=== PATIENT | female | born 1995 | race Caucasian/White ===

== ENCOUNTER 2017-08-29 21:26 | Emergency (ER) | payer OTHER ==
[2017-08-29] MEDS ORDERED: traZODone 50 MG TAB PO ONE (22:38)
--- NOTE | 2017-08-29 22:40 | EDPHY ---
H & P Stated Complaint: c/o migraine streeter ongoing daily, pt says today much worse than usu Time Seen by Provider: 08/29/17 22:22 HPI/ROS: HPI The patient presents with headache which began at approximately 1:00 p.m. today , it started slowly and got progressively worse. It is a throbbing sensation which is retro-orbital and severe. She took Excedrin. It did not improve and became progressively worse until 7:00 p.m. when it became very severe. As she took sumatriptan which is now helped her symptoms significantly and she is feeling much better. She reports nausea without any vomiting. She has photophobia. She does have mild rhinorrhea. She is currently being evaluated for migraine headache. She has had them for the last several months on a near daily basis. She was worked up at an outside hospital with CT brain and sinuses , these were unremarkable. She has been seen by the neurologist and was started on amitriptyline about 2 weeks ago.. REVIEW OF SYSTEMS Constitutional: No fever, no chills. Eyes: No discharge. ENT: No sore throat. Cardiovascular: No chest pain, no palpitations. Respiratory: No cough, no shortness of breath. Gastrointestinal: No abdominal pain, no vomiting. Genitourinary: No hematuria. Musculoskeletal: No back pain. Skin: No rashes. Neurological: Positive for headache. PMHx: Migraine headaches Soc Hx: College student PHYSICAL General Appearance: Alert, no distress Eyes: Pupils equal and round no pallor or injection ENT, Mouth: Mucous membranes moist Respiratory: There are no retractions, lungs are clear to auscultation Cardiovascular: Regular rate and rhythm Gastrointestinal: Abdomen is soft and non-tender, no masses, bowel sounds normal Neurological: Alert and oriented x3, cranial nerves 2-12 intact, 5/5 strength of upper and lower extremities which is symmetric, normal finger to nose testing Skin: Warm and dry, no rashes Musculoskeletal: Neck is supple non tender Extremities: symmetrical, full range of motion Psychiatric: Patient is oriented X 3, there is no agitation Source: Patient Exam Limitations: No limitations - Medical/Surgical History Hx Asthma: No Hx Chronic Respiratory Disease: No Hx Diabetes: No Hx Cardiac Disease: No Hx Renal Disease: No Hx Cirrhosis: No Hx Alcoholism: No Hx HIV/AIDS: No Hx Splenectomy or Spleen Trauma: No Other PMH: migraines - Social History Smoking Status: Never smoked Constitutional: Initial Vital Signs Temperature (C) 36.4 C 08/29/17 21:35 Heart Rate 85 08/29/17 21:35 Respiratory Rate 16 08/29/17 21:35 Blood Pressure 107/84 H 08/29/17 21:35 O2 Sat (%) 100 08/29/17 21:35 O2 Delivery Mode Room Air Allergies/Adverse Reactions: soy Allergy (Verified 08/29/17 21:37) ibuprofen Adverse Reaction (Verified 08/29/17 21:37) Home Medications: Medication Instructions Recorded Amitriptyline HCl 08/29/17 SUMAtriptan 08/29/17 traZODone [traZODONE 50MG (*)] 50 mg PO HS PRN #10 tab 08/29/17 Medical Decision Making Differential Diagnosis: 22-year-old female with history of migraine headaches presents with severe headache, took sumatriptan prior to arrival and now headache is much better. She is complaining of mild disorientation which she has had before with these headaches. She currently declines any pain medication. She is concerned about her insomnia, sleeping only a few hours each night. His she has tried melatonin already. I will have her start low-dose trazodone as a trial and if this helps she can follow up at [facility]. She should only take it as needed for sleep. She will be discharged from the emergency department. Departure - Departure Disposition: Home, Routine, Self-Care Clinical Impression: Migraine headache Qualifiers: Migraine type: unspecified Status migrainosus presence: without status migrainosus Intractability: not intractable Qualified Code(s): G43.909 - Migraine, unspecified, not intractable, without status migrainosus Condition: Good Instructions: Migraine Headache (ED) Additional Instructions: Please return to the emergency department if your worse in any way. Referrals: [facility] [Clinic] - As per Instructions Neurologists Gaudencio Wan MD [Medical Doctor] - As per Instructions Prescriptions: traZODone [traZODONE 50MG (*)] 50 mg PO HS PRN #10 tab PRN Reason: insomnia
[2017-08-29 23:01] VITALS: BP 106/75; PULSE 69; RESP 18; TEMP 97.9; O2SAT 98
== END 2017-08-29 23:08 | disposition home or self-care (01) ==
DX: G43.909 Migraine, unspecified, not intractable, without status migrainosus (principal)

== ENCOUNTER → 2017-12-24 | Outpatient (CLI) | payer OTHER | LOC: FCPNEURO 21:00 | PROVIDERS: ATTEND Student in an Organized Health Care Education/Training Program | DX: G47.00 Insomnia, unspecified (principal) ==